=== PATIENT | male | born 2005 | race Caucasian/White ===

== ENCOUNTER 2023-03-26 13:18 | Emergency (ER) | payer OTHER ==
[~2023-03-26] VITALS: Ht 170.2 cm; Wt 68.1 kg
--- NOTE | 2023-03-26 13:47 | NUR ---
Poison control notified at 1345 observe for symptoms improvement for 1-2 hours. If worsening at 4 hours then obtain a CXR
[2023-03-26] MEDS ORDERED: ondansetron 4mg rapidly disintigrating tab PO ONE (15:55)
[2023-03-26 15:58] VITALS: BP 128/73
== END 2023-03-26 16:47 | disposition home or self-care (01) ==
LOC: ER 13:19
DX: R42 Dizziness and giddiness (principal); R11.0 Nausea; Z77.098 Contact with and (suspected) exposure to other hazardous, chiefly nonmedicinal, chemicals
CPT/HCPCS: 99283